=== PATIENT | female | born 1980 | race Caucasian/White ===

== ENCOUNTER → 2023-12-19 13:38 | Outpatient (REF) | payer OTHER, SELFPAY | LOC: PNTC 13:38 | PROVIDERS: ATTENDING PHYSICIAN Obstetrics & Gynecology | DX: O09.529 Supervision of elderly multigravida, unspecified trimester (principal) | CPT/HCPCS: 76811 ==

== ENCOUNTER → 2024-01-16 13:34 | Outpatient (REF) | payer OTHER, SELFPAY | LOC: PNTC 13:34 | PROVIDERS: ATTENDING PHYSICIAN Obstetrics & Gynecology | DX: O09.529 Supervision of elderly multigravida, unspecified trimester (principal) | CPT/HCPCS: 76816 ==

== ENCOUNTER → 2024-02-21 11:27 | Outpatient (REF) | payer OTHER, SELFPAY | LOC: PNTC 11:27 | PROVIDERS: ATTENDING PHYSICIAN Obstetrics & Gynecology | DX: O09.529 Supervision of elderly multigravida, unspecified trimester (principal) | CPT/HCPCS: 76816 ==

== ENCOUNTER 2024-02-28 12:31 | Observation (INO) | payer OTHER, SELFPAY ==
[2024-02-28 12:57] LABS: Hematocrit 29.4 % (37.0-47.0); Hemoglobin 9.8 g/dL (12.0-16.0); Mean Corp Hgb Conc. 33.3 g/dL (33.0-37.0); Mean Corpuscular Hgb 27.5 pg (27.0-31.0); Mean Corpuscular Volume 82.6 fL (81.0-99.0); Platelet Count 276 10^3/uL (130-400); Red Blood Cell Count 3.56 10^6/uL (4.20-5.40); White Blood Cell Count 11.5 10^3/uL (4.8-10.8)
[2024-02-28 13:05] VITALS: BP 140/59; BMI 30.9
[2024-02-28 13:05] LABS: Urine Albumin Negative (Neg - Trace); Urine Bilirubin Negative (Negative); Urine Character Clear (Clear); Urine Color Yellow; Urine Glucose Negative (Negative); Urine Ketone 1+ (Negative); Urine Leukocyte Negative (Negative); Urine Nitrite Negative (Negative); Urine Occult Blood Negative (Negative); Urine Specific Gravity 1.005 (<1.030); Urine Urobilinogen Negative (Neg - 1+)
[2024-02-28 13:10] LABS: ALT (SGPT) 18 U/L (0-35); AST (SGOT) 21 U/L (14-36); Albumin 3.7 g/dl (3.5-5.0); Alkaline Phosphatase 122 U/L (38-126); Blood Urea Nitrogen 11 mg/dl (7-17); Calcium 9.4 mg/dl (8.4-10.2); Carbon Dioxide 21 mmol/L (22-30); Chloride 102 mmol/L (98-107); Glucose 102 mg/dl (70-99); Potassium 3.9 mmol/L (3.5-5.1); Sodium 128 mmol/L (135-145); Total Bilirubin 0.3 mg/dl (0.2-1.3); Total Protein 6.8 g/dl (6.3-8.2); eGFR > 60.00
[2024-02-28 13:25] LABS: Protein/creatinine Ratio 0.6; Urine Protein 12 mg/dl
== END 2024-02-28 13:53 | disposition home or self-care (01) ==
LOC: PNTC-IN 12:31
PROVIDERS: ADMITTING PHYSICIAN Obstetrics & Gynecology; ATTENDING PHYSICIAN Obstetrics & Gynecology
DX: O26.893 Other specified pregnancy related conditions, third trimester (principal); R03.0 Elevated blood-pressure reading, without diagnosis of hypertension; O09.523 Supervision of elderly multigravida, third trimester; Z3A.30 30 weeks gestation of pregnancy
CPT/HCPCS: 59025; 76815; 80053; 81003; 82570; 84156; 85027; G0378

== ENCOUNTER 2024-03-06 11:58 | Observation (INO) | payer OTHER, SELFPAY ==
[2024-03-06 12:27] LABS: Hematocrit 29.5 % (37.0-47.0); Mean Corp Hgb Conc. 33.9 g/dL (33.0-37.0); Mean Corpuscular Hgb 27.3 pg (27.0-31.0); Mean Corpuscular Volume 80.6 fL (81.0-99.0); Mean Platelet Volume 11.5 fL (7.4-10.4); Platelet Count 248 10^3/uL (130-400); Red Blood Cell Count 3.66 10^6/uL (4.20-5.40); Red Cell Dist. Width 15.1 % (11.5-14.5); White Blood Cell Count 10.2 10^3/uL (4.8-10.8)
[2024-03-06 12:34] LABS: ALT (SGPT) 16 U/L (0-35); AST (SGOT) 19 U/L (14-36); Albumin 3.7 g/dl (3.5-5.0); Alkaline Phosphatase 118 U/L (38-126); Blood Urea Nitrogen 11 mg/dl (7-17); Calcium 9.7 mg/dl (8.4-10.2); Carbon Dioxide 21 mmol/L (22-30); Chloride 101 mmol/L (98-107); Glucose 101 mg/dl (70-99); Potassium 3.8 mmol/L (3.5-5.1); Sodium 129 mmol/L (135-145); Total Bilirubin 0.3 mg/dl (0.2-1.3); Total Protein 6.7 g/dl (6.3-8.2); eGFR > 60.00
[2024-03-06 13:03] LABS: Urine Protein 14 mg/dl
[2024-03-06 14:16] VITALS: BMI 32.0
[2024-03-06 15:50] LABS: Urine Albumin Negative (Neg - Trace); Urine Bilirubin Negative (Negative); Urine Character Clear (Clear); Urine Color Yellow; Urine Glucose Negative (Negative); Urine Ketone 1+ (Negative); Urine Leukocyte Negative (Negative); Urine Nitrite Negative (Negative); Urine Occult Blood Negative (Negative); Urine Urobilinogen Negative (Neg - 1+)
[2024-03-06 16:01] LABS: Protein/creatinine Ratio 1.3
== END 2024-03-06 12:06 | disposition left against medical advice (07) ==
LOC: PNTC-IN 11:58
PROVIDERS: Obstetrics & Gynecology; ADMITTING PHYSICIAN Obstetrics & Gynecology
DX: O14.03 Mild to moderate pre-eclampsia, third trimester (principal); O09.523 Supervision of elderly multigravida, third trimester; Z3A.31 31 weeks gestation of pregnancy
CPT/HCPCS: 59025; 76815; 80053; 81003; 82570; 84156; 85027; G0378

== ENCOUNTER → 2024-03-13 11:39 | Outpatient (REF) | payer OTHER, SELFPAY | LOC: PNTC 11:39 | PROVIDERS: ATTENDING PHYSICIAN Obstetrics & Gynecology | DX: O13.9 Gestational [pregnancy-induced] hypertension without significant proteinuria, unspecified trimester (principal); O09.529 Supervision of elderly multigravida, unspecified trimester; O14.90 Unspecified pre-eclampsia, unspecified trimester | CPT/HCPCS: 59025; 76815 ==

== ENCOUNTER → 2024-03-20 11:09 | Outpatient (REF) | payer OTHER, SELFPAY | LOC: PNTC 11:09 | PROVIDERS: ATTENDING PHYSICIAN Obstetrics & Gynecology | DX: O09.529 Supervision of elderly multigravida, unspecified trimester (principal); O13.9 Gestational [pregnancy-induced] hypertension without significant proteinuria, unspecified trimester; Z87.51 Personal history of pre-term labor | CPT/HCPCS: 59025; 76816 ==

== ENCOUNTER → 2024-03-27 13:57 | Outpatient (REF) | payer OTHER, SELFPAY | LOC: PNTC 13:57 | PROVIDERS: ATTENDING PHYSICIAN Obstetrics & Gynecology | DX: O09.529 Supervision of elderly multigravida, unspecified trimester (principal); O13.9 Gestational [pregnancy-induced] hypertension without significant proteinuria, unspecified trimester; Z87.59 Personal history of other complications of pregnancy, childbirth and the puerperium | CPT/HCPCS: 59025; 76815 ==

== ENCOUNTER → 2024-04-04 10:03 | Outpatient (REF) | payer OTHER, SELFPAY | LOC: PNTC 10:03 | PROVIDERS: ATTENDING PHYSICIAN Obstetrics & Gynecology | DX: O09.529 Supervision of elderly multigravida, unspecified trimester (principal); O13.9 Gestational [pregnancy-induced] hypertension without significant proteinuria, unspecified trimester; Z87.59 Personal history of other complications of pregnancy, childbirth and the puerperium | CPT/HCPCS: 59025; 76815 ==

== ENCOUNTER → 2024-04-10 10:59 | Outpatient (REF) | payer OTHER, SELFPAY | LOC: PNTC 10:59 | PROVIDERS: ATTENDING PHYSICIAN Obstetrics & Gynecology | DX: O09.529 Supervision of elderly multigravida, unspecified trimester (principal) | CPT/HCPCS: 76816 ==

== ENCOUNTER 2024-04-16 18:49 | Inpatient (IN) | payer OTHER, SELFPAY ==
[2024-04-16 18:54] VITALS: BMI 30.8
[2024-04-16 20:33] LABS: % Basophils 0.5 % (0-2); % Eosinophils 1.3 % (0-6); % Immature Granulocytes 0.6 % (0-0.5); % Monocytes 9.4 % (1.7-9.3); % Neutrophils 66.2 % (42.2-75.2); Absolute Basophils 0.1 10^3/uL (0-0.2); Absolute Eosinophils 0.1 10^3/uL (0-0.7); Absolute Immature Granulocytes 0.1 10^3/uL (0-0.05); Absolute Lymphocytes 2.3 10^3/uL (1.2-3.4); Absolute Neutrophils 7.1 10^3/uL (1.4-6.5); Hemoglobin 10.3 g/dL (12.0-16.0); Mean Corp Hgb Conc. 34.3 g/dL (33.0-37.0); Mean Corpuscular Hgb 27.2 pg (27.0-31.0); Mean Corpuscular Volume 79.2 fL (81.0-99.0); Mean Platelet Volume 11.1 fL (7.4-10.4); Nucleated Red Blood Cells % 0 %; Platelet Count 288 10^3/uL (130-400); Red Blood Cell Count 3.79 10^6/uL (4.20-5.40); Red Cell Dist. Width 16.5 % (11.5-14.5); White Blood Cell Count 10.7 10^3/uL (4.8-10.8)
[2024-04-16] MEDS: CYTOTEC 25 MICROGRAM VAG (20:45)
[2024-04-16 21:03] LABS: ALT (SGPT) 16 U/L (0-35); AST (SGOT) 24 U/L (14-36); Albumin 3.5 g/dl (3.5-5.0); Alkaline Phosphatase 139 U/L (38-126); Blood Urea Nitrogen 12 mg/dl (7-17); Calcium 9.8 mg/dl (8.4-10.2); Carbon Dioxide 19 mmol/L (22-30); Chloride 103 mmol/L (98-107); Estimated Creatinine Clearance 114 ml/min; Glucose 116 mg/dl (70-99); Potassium 3.5 mmol/L (3.5-5.1); Sodium 130 mmol/L (135-145); Total Protein 6.5 g/dl (6.3-8.2); eGFR > 60.00
[2024-04-16 21:37] LABS: Total Bilirubin 0.3 mg/dl (0.2-1.3)
[2024-04-16] MEDS: ZYRTEC 10 MG PO (23:01)
[2024-04-16 23:24] VITALS: BP 135/64
[2024-04-17] MEDS: CYTOTEC 50 MICROGRAM PO ×2 (00:38→04:45)
[2024-04-17] MEDS: PROTONIX 40 MG PO (08:21)
[2024-04-17] MEDS: PENICILLIN 110 UNITS IV (13:32)
[2024-04-17] MEDS: CYTOTEC PO ×2 (14:01)
[2024-04-17] MEDS: PITOCIN 30 UNITS/NSS 500 ML IV (14:12)
[2024-04-17] MEDS: PENICILLIN 55 UNITS IV (17:25)
[2024-04-17] MEDS: FENTANYL/BUPIVACAINE 100 EPIDURAL (17:42)
[2024-04-17] MEDS: SUBLIMAZE 100 MCG EPIDURAL (17:42)
[2024-04-17] MEDS: LR 1000 IV ×2 (18:22→18:49)
--- NOTE | 2024-04-18 03:41 | DOWNTIME ---
There was a [employer] [facility] Therapist Downtime on 04/18/2024 from 0100 to 04/18/2024 at 0337. Downtime documentation of patient's care, including medication administrations, has been reconciled in the electronic record per guidelines. Refer to the
patient's paper chart under the miscellaneous tab to see printed paper medication records and downtime forms.
[2024-04-18 05:16] LABS: Hematocrit 28.2 % (37.0-47.0); Hemoglobin 9.7 g/dL (12.0-16.0)
[2024-04-18] MEDS: PRENATAL PLUS 1 TABLET PO (08:12)
[2024-04-18] MEDS: PROTONIX 40 MG PO (08:12)
[2024-04-19] MEDS: FEOSOL 325 MG PO (08:23)
[2024-04-19] MEDS: PROTONIX 40 MG PO (08:23)
[2024-04-19] MEDS: PRENATAL PLUS 1 TABLET PO (08:23)
[2024-04-20 13:45] LABS: Syphilis/T. pallidum Ab Reflex Negative (Negative)
== END 2024-04-19 13:21 | disposition home or self-care (01) | DRG 807 ==
LOC: LDRP 18:49
PROVIDERS: Obstetrics & Gynecology; ADMITTING PHYSICIAN Obstetrics & Gynecology
PROC: 10E0XZZ Delivery of Products of Conception, External Approach (ICD-10-PCS; 2024-04-17)
PROC: 10907ZC Drainage of Amniotic Fluid, Therapeutic from Products of Conception, Via Natural or Artificial Opening (ICD-10-PCS; 2024-04-17)
PROC: 0KQM0ZZ Repair Perineum Muscle, Open Approach (ICD-10-PCS; 2024-04-17)
DX: O14.04 Mild to moderate pre-eclampsia, complicating childbirth (principal); Z37.0 Single live birth; O99.824 Streptococcus B carrier state complicating childbirth; Z3A.37 37 weeks gestation of pregnancy; O70.1 Second degree perineal laceration during delivery
CPT/HCPCS: 88307; 36415; 59025; 76816; 80053; 85014; 85018; 85025; 86780; 86850; 86900; 86901